=== PATIENT | female | born 1975 | race Caucasian/White ===

== ENCOUNTER 2016-10-03 14:45 | Emergency (ER) | payer MEDICARE, OTHER ==
[~2016-10-03] VITALS: Ht 162.6 cm; Wt 124.7 kg
--- NOTE | 2016-10-03 15:12 | PHYS DOC ---
Past Medical History Past Medical History: No Pertinent History Past Surgical History: , Tubal ligation Alcohol Use: None Drug Use: None Adult General Chief Complaint Chief Complaint: ABDOMINAL PAIN HPI HPI Patient is a 41 year old female who presents with nausea vomiting diarrhea for the last 10 days. She states anytime she tries to eat or drink anything she becomes nauseated and vomits or has nonbloody liquid stools. She also complains about epigastric crampy pain. She denies any blood in her stools. She denies any fevers or chills. She was seen by her primary care physician and started on ranitidine and it seems like some stool cultures were ordered at that time. She denies any surgery on her abdomen. She denies any history of recent travel area. Review of Systems Review of Systems Constitutional: Denies fever or chills [] Eyes: Denies change in visual acuity, redness, or eye pain [] HENT: Denies nasal congestion or sore throat [] Respiratory: Denies cough or shortness of breath [] Cardiovascular: No additional information not addressed in HPI [] GI: Denies abdominal pain, nausea, vomiting, bloody stools or diarrhea [] : Denies dysuria or hematuria [] Musculoskeletal: Denies back pain or joint pain [] Integument: Denies rash or skin lesions [] Neurologic: Denies headache, focal weakness or sensory changes [] Endocrine: Denies polyuria or polydipsia [] Current Medications Current Medications Current Medications Medications (Trade) Dose Ordered Sig/Sree Start Time Stop Time Status Last Admin Dose Admin Info (Do NOT chart on this entry -- for MONITORING) 1 each PRN DAILY PRN 10/03/16 16:30 10/05/16 16:29 Iohexol (Omnipaque 300 Mg/ml) 75 ml 1X ONCE 10/03/16 16:30 10/03/16 16:31 DC 10/03/16 17:03 75 ML Sodium Chloride 1,000 ml @ 1,000 mls/hr Q1H 10/03/16 15:30 10/03/16 16:29 DC 10/03/16 15:51 1,000 MLS/HR Allergies Allergies Allergies Coded Allergies Type Severity Reaction Last Updated Verified ibuprofen Allergy Intermediate hives 04/04/13 Yes Physical Exam Physical Exam Constitutional: Well developed, well nourished, no acute distress, non-toxic appearance. [] HENT: Normocephalic, atraumatic, bilateral external ears normal, oropharynx moist, no oral exudates, nose normal. [] Eyes: PERRLA, EOMI, conjunctiva normal, no discharge. [] Neck: Normal range of motion, no tenderness, supple, no stridor. [] Cardiovascular:Heart rate regular rhythm, no murmur [] Lungs & Thorax: Bilateral breath sounds clear to auscultation [] Abdomen: Bowel sounds hypoactive, soft, mild tender palpation epigastric area without any rebound or guarding., no masses, no pulsatile masses. [] Skin: Warm, dry, no erythema, no rash. [] Back: No tenderness, no CVA tenderness. [] Extremities: No tenderness, no cyanosis, no clubbing, ROM intact, no edema. [] Neurologic: Alert and oriented X 3, normal motor function, normal sensory function, no focal deficits noted. [] Psychologic: Affect normal, judgement normal, mood normal. [] Current Patient Data Vital Signs Vital Signs Date Time Temp Pulse Resp B/P (MAP) Pulse Ox O2 Delivery O2 Flow Rate FiO2 10/03/16 15:10 97.5 100 16 137/84 (101) 98 Room Air 97.5 Lab Values Laboratory Tests Test 10/03/16 15:00 10/03/16 15:25 Urine Collection Type Unknown Urine Color Yellow Urine Clarity Clear Urine pH 5.5 Urine Specific [place] 1.020 Urine Protein Negative mg/dL (NEG-TRACE) Urine Glucose (UA) Negative mg/dL (NEG) Urine Ketones (Stick) Negative mg/dL (NEG) Urine Blood Trace (NEG) Urine Nitrite Negative (NEG) Urine Bilirubin Negative (NEG) Urine Urobilinogen Dipstick 0.2 mg/dL (0.2 mg/dL) Urine Leukocyte Esterase Moderate (NEG) Urine RBC Occ /HPF (0-2) Urine WBC 11-20 /HPF (0-4) Urine Squamous Epithelial Cells Mod /LPF Urine Bacteria Moderate /HPF (0-FEW) Urine Mucus Mod /LPF Urine Opiates Screen Neg (NEG) Urine Methadone Screen Neg (NEG) Urine Barbiturates Neg (NEG) Urine Phencyclidine Screen Neg (NEG) Urine Amphetamine/Methamphetamine Neg (NEG) Urine Benzodiazepines Screen Neg (NEG) Urine Cocaine Screen Neg (NEG) Urine Cannabinoids Screen Neg (NEG) Urine Ethyl Alcohol Neg (NEG) White Blood Count 10.3 x10^3/uL (4.0-11.0) Red Blood Count 4.58 x10^6/uL (3.50-5.40) Hemoglobin 14.2 g/dL (12.0-15.5) Hematocrit 41.6 % (36.0-47.0) Mean Corpuscular Volume 91 fL (79-100) Mean Corpuscular Hemoglobin 31 pg (25-35) Mean Corpuscular Hemoglobin Concent 34 g/dL (31-37) Red Cell Distribution Width 13.1 % (11.5-14.5) Platelet Count 199 x10^3/uL (140-400) Neutrophils (%) (Auto) 67 % (31-73) Lymphocytes (%) (Auto) 26 % (24-48) Monocytes (%) (Auto) 5 % (0-9) Eosinophils (%) (Auto) 1 % (0-3) Basophils (%) (Auto) 1 % (0-3) Neutrophils # (Auto) 6.9 x10^3uL (1.8-7.7) Lymphocytes # (Auto) 2.7 x10^3/uL (1.0-4.8) Monocytes # (Auto) 0.5 x10^3/uL (0.0-1.1) Eosinophils # (Auto) 0.1 x10^3/uL (0.0-0.7) Basophils # (Auto) 0.1 x10^3/uL (0.0-0.2) Prothrombin Time 13.1 SEC (11.7-14.0) Prothrombin Time INR 1.1 (0.8-1.1) PTT 26 SEC (24-38) Sodium Level 143 mmol/L (136-145) Potassium Level 3.6 mmol/L (3.5-5.1) Chloride Level 104 mmol/L (98-107) Carbon Dioxide Level 31 mmol/L (21-32) Anion Gap 8 (6-14) Blood Urea Nitrogen 7 mg/dL (7-20) Creatinine 1.0 mg/dL (0.6-1.0) Estimated GFR (Cockcroft-Gault) 61.4 Glucose Level 74 mg/dL (70-99) Calcium Level 9.0 mg/dL (8.5-10.1) Total Bilirubin 0.3 mg/dL (0.2-1.0) Direct Bilirubin < 0.1 mg/dL (0.0-0.2) Aspartate Amino Transferase (AST) 12 U/L (15-37) L Alanine Aminotransferase (ALT) 26 U/L (14-59) Alkaline Phosphatase 83 U/L (46-116) Creatine Kinase 76 U/L (26-192) Creatine Kinase MB (Mass) < 0.5 ng/mL (0.0-3.6) Creatine Kinase MB Relative Index 0.7 % (0-4) Troponin I Quantitative < 0.017 ng/mL (0.000-0.055) Total Protein 7.3 g/dL (6.4-8.2) Albumin 3.7 g/dL (3.4-5.0) Lipase 158 U/L (73-393) Laboratory Tests 10/03/16 15:25 Laboratory Tests 10/03/16 15:25 EKG EKG [] Radiology/Procedures Radiology/Procedures [facility] [address] [place] [address] IMAGING REPORT Signed PATIENT: TRAV WARD ACCOUNT: [id number] : 1975 LOCATION: ER AGE: 41 SEX: F EXAM STATUS: REG ER ORD. PHYSICIAN: HAZEL MCNULTY MD REASON: abd pain PROCEDURE: CT ABD PELV W/ IV CONTRST ONLY CT Abdomen and Pelvis With Intravenous Contrast: History: Abdominal pain. Nausea, vomiting, diarrhea for 10 days. Comparison: None. Technique: After administration of intravenous contrast administration, 75 mL Omnipaque-300, CT of the abdomen and pelvis was performed. Exposure: One or more of the following individualized dose reduction techniques were utilized for this examination: 1. Automated exposure control 2. Adjustment of the mA and/or kV according to patient size 3. Use of iterative reconstruction technique Findings: Evaluation of enteric structures may be limited by lack of oral contrast. There is also motion artifact at multiple levels. Liver, spleen, pancreas, gallbladder, and bilateral adrenal glands are unremarkable. Bilateral kidneys enhance symmetrically. No bowel obstruction or inflammation is identified. Appendix is without evidence of inflammation. Urinary bladder is unremarkable. Uterus and adnexa unremarkable CT appearance. No free air or significant free fluid is seen in the abdomen or pelvis. Impression: 1. Limited examination. 2. No acute abnormality identified in the abdomen or pelvis. Electronically signed by: Ha Umana MD (10/03/2016 5:43 PM) [facility] DICTATED and SIGNED BY: HA UMANA MD DATE: 10/03/16 1740 CC: HAZEL MCNULTY MD; ANITA DENISE ~ Impressions: Diarrhea Course & Med Decision Making Course & Med Decision Making Pertinent Labs and Imaging studies reviewed. (See chart for details) Labs and CT scan abdomen pelvis did not show any acute abnormalities. She's been here for approximately 3 hours and has not had a bowel movement. She states he feels better now with IV fluids. Patient has a follow-up on Wednesday with an EGD. She has stool samples pending at her primary care physician facility. She is in stable condition this time and being discharged home. Return precautions given. Dragon Disclaimer Dragon Disclaimer This electronic medical record was generated, in whole or in part, using a voice recognition dictation system. Departure Departure Impression: Primary Impression: Diarrhea Disposition: HOME, SELF-CARE Condition: STABLE Referrals: WILMAN LIEBERMAN (PCP) Patient Instructions: Diarrhea Additional Instructions: Your labs and CT scan of her abdomen pelvis did not show any acute abnormality' s. Your being discharged home. Please follow-up with her primary care physician on Wednesday. Return ER if you have blood in your stools, and uncontrolled nausea vomiting, extreme weakness or other concerns. Scripts No Active Prescriptions or Reported Meds Problem Qualifiers Primary Impression: Diarrhea Diarrhea type: unspecified type Qualified Codes: R19.7 - Diarrhea, unspecified HAZEL MCNULTY MD Oct 03, 2016 15:12
[2016-10-03] MEDS ORDERED: IV NORMAL SALINE 1000ML BAG 1,000 ML IV SCH (15:30)
[2016-10-03 15:35] LABS: BASO # 0.1 x10^3/uL (0.0-0.2); BASO % 1 % (0-3); EOS % 1 % (0-3); HEMATOCRIT 41.6 % (36.0-47.0); HEMOGLOBIN 14.2 g/dL (12.0-15.5); LYMPH # 2.7 x10^3/uL (1.0-4.8); LYMPH % 26 % (24-48); MEAN CORPUSCULAR HEMOGLOBIN 31 pg (25-35); MEAN CORPUSCULAR HGB CONC 34 g/dL (31-37); MEAN CORPUSCULAR VOLUME 91 fL (79-100); MONO % 5 % (0-9); NEUT % 67 % (31-73); PLATELET COUNT 199 x10^3/uL (140-400); RED BLOOD COUNT 4.58 x10^6/uL (3.50-5.40); RED CELL DISTRIBUTION WIDTH 13.1 % (11.5-14.5); WHITE BLOOD COUNT 10.3 x10^3/uL (4.0-11.0)
[2016-10-03 15:37] LABS: BILIRUBIN,URINE NEGATIVE (NEG); GLUCOSE,URINE NEGATIVE (NEG); NITRITE,URINE NEGATIVE (NEG); PH,URINE 5.5; PROTEIN,URINE NEGATIVE (NEG-TRACE); UROBILINOGEN,URINE 0.2 mg/dL (0.2 mg/dL)
[2016-10-03 15:46] LABS: BARBITURATES NEG (NEG); BENZODIAZEPINES NEG (NEG); CANNABINOIDS NEG (NEG); COCAINE NEG (NEG); METHADONE NEG (NEG); OPIATES NEG (NEG); PHENCYCLIDINE NEG (NEG)
[2016-10-03 15:49] LABS: BACTERIA,URINE MODERATE /HPF (0-FEW); RBC,URINE OCC /HPF (0-2); SQUAMOUS EPITHELIAL CELL,UR MOD /LPF
[2016-10-03 15:49] LABS: INR 1.1 (0.8-1.1); PROTHROMBIN TIME PATIENT 13.1 SEC (11.7-14.0)
[2016-10-03 15:54] LABS: ANION GAP 8 (6-14); BLOOD UREA NITROGEN 7 mg/dL (7-20); CARBON DIOXIDE 31 mmol/L (21-32); CHLORIDE 104 mmol/L (98-107); GFR 61.4; GLUCOSE 74 mg/dL (70-99); POTASSIUM 3.6 mmol/L (3.5-5.1); SODIUM 143 mmol/L (136-145)
[2016-10-03 16:00] LABS: ALBUMIN 3.7 g/dL (3.4-5.0); ALK PHOS 83 U/L (46-116); ALT (SGPT) 26 U/L (14-59); AST (SGOT) 12 U/L (15-37); DIRECT BILIRUBIN < 0.1 mg/dL (0.0-0.2); TOTAL BILIRUBIN 0.3 mg/dL (0.2-1.0); TOTAL PROTEIN 7.3 g/dL (6.4-8.2)
[2016-10-03 16:08] LABS: CREATINE KINASE 76 U/L (26-192)
[2016-10-03 16:09] LABS: CKMB MASS < 0.5 ng/mL (0.0-3.6)
[2016-10-03] MEDS ORDERED: IOHEXOL 300 MG/ML 75 ML VIAL IV ONE (16:30)
[2016-10-03] MEDS ORDERED: CONTRAST GIVEN MC PRN (16:30)
--- NOTE | 2016-10-03 16:30 | EKG ---
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
--- NOTE | 2016-10-03 17:46 | RAD ---
CT Abdomen and Pelvis With Intravenous Contrast: History: Abdominal pain. Nausea, vomiting, diarrhea for 10 days. Comparison: None. Technique: After administration of intravenous contrast administration, 75 mL Omnipaque-300, CT of the abdomen and pelvis was performed. Exposure: One or more of the following individualized dose reduction techniques were utilized for this examination: 1. Automated exposure control 2. Adjustment of the mA and/or kV according to patient size 3. Use of iterative reconstruction technique Findings: Evaluation of enteric structures may be limited by lack of oral contrast. There is also motion artifact at multiple levels. Liver, spleen, pancreas, gallbladder, and bilateral adrenal glands are unremarkable. Bilateral kidneys enhance symmetrically. No bowel obstruction or inflammation is identified. Appendix is without evidence of inflammation. Urinary bladder is unremarkable. Uterus and adnexa unremarkable CT appearance. No free air or significant free fluid is seen in the abdomen or pelvis. Impression: 1. Limited examination. 2. No acute abnormality identified in the abdomen or pelvis. Electronically signed by: Ha Cantu MD (10/03/2016 5:43 PM) [facility]
[2016-10-03 18:00] VITALS: BP 124/76
== END 2016-10-03 18:00 | disposition home or self-care (01) ==
LOC: ER 14:45
DX: R11.2 Nausea with vomiting, unspecified (principal); R19.7 Diarrhea, unspecified; Z98.51 Tubal ligation status; Z98.890 Other specified postprocedural states; Z88.8 Allergy status to other drugs, medicaments and biological substances
CPT/HCPCS: 36415; 74177; 80048; 80076; 80307; 81001; 82553; 83690; 84484; 85025; 85610; 85730; 87086; 93005; 96360; 99285; J7030; Q9967; G0479

== ENCOUNTER → 2016-10-05 | Outpatient (CLI) | payer MEDICARE ==
[2016-10-03 18:00] VITALS: BP 124/76
--- NOTE | 2016-10-05 13:49 | RAD ---
Abdominal ultrasound, 10/05/2016: History: Midepigastric pain The gallbladder is within normal limits in size. There is no sonographic evidence of cholelithiasis. The gallbladder davalos are not thickened. The common hepatic duct is of normal caliber. The hepatic echogenicity is mildly increased in a diffuse pattern. This most commonly due to fatty change. No hepatic mass is evident. The visualized portions of the pancreas and both kidneys are unremarkable. The spleen is near the upper limits of normal in size. The abdominal aorta and inferior vena cava are unremarkable. No free fluid is evident in the abdomen. IMPRESSION: 1. Increased hepatic echogenicity suggesting fatty change. 2. No acute abdominal abnormality is detected.
== END | disposition home or self-care (01) ==
LOC: US 10:44
PROVIDERS: ATTEND Physician Assistant
DX: R10.13 Epigastric pain (principal)
CPT/HCPCS: 76700

== ENCOUNTER 2016-10-07 10:52 | Emergency (ER) | payer MEDICARE ==
[~2016-10-07] VITALS: Ht 162.6 cm; Wt 124.7 kg
[2016-10-07 11:16] LABS: BILIRUBIN,URINE NEGATIVE (NEG); GLUCOSE,URINE NEGATIVE (NEG); NITRITE,URINE NEGATIVE (NEG); PH,URINE 5.5; PROTEIN,URINE NEGATIVE (NEG-TRACE); UROBILINOGEN,URINE 0.2 mg/dL (0.2 mg/dL)
[2016-10-07 11:27] LABS: BASO % 0 % (0-3); EOS % 2 % (0-3); HEMATOCRIT 40.7 % (36.0-47.0); HEMOGLOBIN 14.3 g/dL (12.0-15.5); LYMPH # 2.4 x10^3/uL (1.0-4.8); LYMPH % 29 % (24-48); MEAN CORPUSCULAR HEMOGLOBIN 31 pg (25-35); MEAN CORPUSCULAR HGB CONC 35 g/dL (31-37); MEAN CORPUSCULAR VOLUME 89 fL (79-100); MONO % 5 % (0-9); NEUT % 64 % (31-73); PLATELET COUNT 207 x10^3/uL (140-400); RED BLOOD COUNT 4.56 x10^6/uL (3.50-5.40); WHITE BLOOD COUNT 8.2 x10^3/uL (4.0-11.0)
[2016-10-07 11:39] LABS: CALCIUM 9.2 mg/dL (8.5-10.1); GFR 61.4; POTASSIUM 3.7 mmol/L (3.5-5.1)
[2016-10-07 11:43] LABS: BACTERIA,URINE MOD /HPF (0-FEW); SQUAMOUS EPITHELIAL CELL,UR MOD /LPF
[2016-10-07 11:45] LABS: ALBUMIN 3.8 g/dL (3.4-5.0); TOTAL BILIRUBIN 0.3 mg/dL (0.2-1.0); TOTAL PROTEIN 7.6 g/dL (6.4-8.2)
[2016-10-07] MEDS: LIDO:MAALOX:DONNATAL 1:1:1 15 ML SINGLE DOSE SWSW ONE (12:00)
[2016-10-07] MEDS: DICYCLOMINE 20 MG/2 ML AMPUL. IM ONE (12:02)
[2016-10-07] MEDS ORDERED: DICY10CA53 PO (12:49)
--- NOTE | 2016-10-07 12:49 | PHYS DOC ---
Past Medical History Past Medical History: No Pertinent History Past Surgical History: , Tubal ligation Alcohol Use: Rarely Drug Use: None Adult General Chief Complaint Chief Complaint: ABDOMINAL PAIN HPI HPI Patient is a 41 year old female presents to the emergency department stating that she's been having diarrhea stools for over 10 days. She states that she's been seen by her primary care physician. She was seen here on 03 October for upper abdominal pain and diarrhea. She had a CT scan of the abdomen CBC chemistries and a complete workup done at that time. She states that she is still having left upper abdominal pain and diarrhea. She states she's had 2 diarrhea stools today. She states that she has not seen but has not vomited. She does state that her primary care physician who placed her on 917 which has not helped with any of the discomfort. Patient denies any fever, chills. Review of Systems Review of Systems Constitutional: Denies fever or chills [] Eyes: Denies change in visual acuity, redness, or eye pain [] HENT: Denies nasal congestion or sore throat [] Respiratory: Denies cough or shortness of breath [] Cardiovascular: No additional information not addressed in HPI [] GI: abdominal pain, nausea c/o diarrhea stools, denies vomiting, bloody stools or diarrhea [] : Denies dysuria or hematuria [] Musculoskeletal: Denies back pain or joint pain [] Integument: Denies rash or skin lesions [] Neurologic: Denies headache, focal weakness or sensory changes [] Endocrine: Denies polyuria or polydipsia [] Current Medications Current Medications Current Medications Medications (Trade) Dose Ordered Sig/Sree Start Time Stop Time Status Last Admin Dose Admin Dicyclomine HCl (Bentyl) 10 mg 1X ONCE 10/07/16 11:45 10/07/16 11:46 DC 10/07/16 12:02 10 MG Multi-Ingredient Mouthwash/Gargle (Gi Cocktail Single Dose) 15 ml 1X ONCE 10/07/16 11:45 10/07/16 11:46 DC 10/07/16 12:00 15 ML Allergies Allergies Allergies Coded Allergies Type Severity Reaction Last Updated Verified ibuprofen Allergy Intermediate hives 10/07/16 Yes Physical Exam Physical Exam Constitutional: Well developed, well nourished, no acute distress, non-toxic appearance. [] HENT: Normocephalic, atraumatic, bilateral external ears normal, oropharynx moist, no oral exudates, nose normal. [] Eyes: PERRLA, EOMI, conjunctiva normal, no discharge. [] Neck: Normal range of motion, no tenderness, supple, no stridor. [] Cardiovascular:Heart rate regular rhythm, no murmur [] Lungs & Thorax: Bilateral breath sounds clear to auscultation [] Abdomen: Bowel sounds hypoactive, soft, left upper abdominal tenderness, no masses, no pulsatile masses. [] Skin: Warm, dry, no erythema, no rash. [] Back: No tenderness Extremities: No tenderness, no cyanosis, no clubbing, ROM intact, no edema. [] Neurologic: Alert and oriented X 3, normal motor function, normal sensory function, no focal deficits noted. [] Psychologic: Affect normal, judgement normal, mood normal. [] Current Patient Data Vital Signs Vital Signs Date Time Temp Pulse Resp B/P (MAP) Pulse Ox O2 Delivery O2 Flow Rate FiO2 10/07/16 11:05 98.2 85 20 139/86 (103) 99 Room Air 98.2 Lab Values Laboratory Tests Test 10/07/16 10:11 10/07/16 10:59 10/07/16 11:10 POC Urine HCG, Qualitative Hcg negative (Negative) Urine Collection Type Void Urine Color Yellow Urine Clarity Clear Urine pH 5.5 Urine Specific [place] 1.025 Urine Protein Negative mg/dL (NEG-TRACE) Urine Glucose (UA) Negative mg/dL (NEG) Urine Ketones (Stick) Negative mg/dL (NEG) Urine Blood Trace (NEG) Urine Nitrite Negative (NEG) Urine Bilirubin Negative (NEG) Urine Urobilinogen Dipstick 0.2 mg/dL (0.2 mg/dL) Urine Leukocyte Esterase Moderate (NEG) Urine RBC 1-2 /HPF (0-2) Urine WBC 5-10 /HPF (0-4) Urine Squamous Epithelial Cells Mod /LPF Urine Bacteria Mod /HPF (0-FEW) Urine Mucus Slight /LPF White Blood Count 8.2 x10^3/uL (4.0-11.0) Red Blood Count 4.56 x10^6/uL (3.50-5.40) Hemoglobin 14.3 g/dL (12.0-15.5) Hematocrit 40.7 % (36.0-47.0) Mean Corpuscular Volume 89 fL (79-100) Mean Corpuscular Hemoglobin 31 pg (25-35) Mean Corpuscular Hemoglobin Concent 35 g/dL (31-37) Red Cell Distribution Width 13.0 % (11.5-14.5) Platelet Count 207 x10^3/uL (140-400) Neutrophils (%) (Auto) 64 % (31-73) Lymphocytes (%) (Auto) 29 % (24-48) Monocytes (%) (Auto) 5 % (0-9) Eosinophils (%) (Auto) 2 % (0-3) Basophils (%) (Auto) 0 % (0-3) Neutrophils # (Auto) 5.3 x10^3uL (1.8-7.7) Lymphocytes # (Auto) 2.4 x10^3/uL (1.0-4.8) Monocytes # (Auto) 0.4 x10^3/uL (0.0-1.1) Eosinophils # (Auto) 0.2 x10^3/uL (0.0-0.7) Basophils # (Auto) 0.0 x10^3/uL (0.0-0.2) Sodium Level 140 mmol/L (136-145) Potassium Level 3.7 mmol/L (3.5-5.1) Chloride Level 104 mmol/L (98-107) Carbon Dioxide Level 32 mmol/L (21-32) Anion Gap 4 (6-14) L Blood Urea Nitrogen 10 mg/dL (7-20) Creatinine 1.0 mg/dL (0.6-1.0) Estimated GFR (Cockcroft-Gault) 61.4 BUN/Creatinine Ratio 10 (6-20) Glucose Level 85 mg/dL (70-99) Calcium Level 9.2 mg/dL (8.5-10.1) Total Bilirubin 0.3 mg/dL (0.2-1.0) Aspartate Amino Transferase (AST) 19 U/L (15-37) Alanine Aminotransferase (ALT) 33 U/L (14-59) Alkaline Phosphatase 85 U/L (46-116) Total Protein 7.6 g/dL (6.4-8.2) Albumin 3.8 g/dL (3.4-5.0) Albumin/Globulin Ratio 1.0 (1.0-1.7) Laboratory Tests 10/07/16 11:10 Laboratory Tests 10/07/16 11:10 EKG EKG [] Radiology/Procedures Radiology/Procedures [] Course & Med Decision Making Course & Med Decision Making Pertinent Labs and Imaging studies reviewed. (See chart for details) Patient was provided with Bentyl here in the emergency department as well as a GI cocktail. Patient states that she feels much better and is ready to go home. Recommended the patient follow-up with a GI doctor she states that her primary care physician in the setting up an appointment up for her. I spoke to her about taking initiative on her own to also get a GI doctor since she's had diarrhea stools for the last 10 days. Patient will be sent home with a prescription for Bentyl recommended Mylanta or Maalox [id number] as well as her amantadine. Patient will be discharged home in stable condition signs symptoms to return back to emergency department been provided. All questions and concerns of been answered at the bedside. Patient has requested a work note for today. Patient's urine was positive for urinary tract infection. She'll be placed on Macrobid one tablet twice a for the next 7 days. She is recommended drink plenty of fluids such as water and cranberry juice. Avoid cranberry juice cocktail, carbonated beverages, citrus fruits, alcohol, caffeine as these are considered irritants to the bladder. [] Dragon Disclaimer Dragon Disclaimer This electronic medical record was generated, in whole or in part, using a voice recognition dictation system. Departure Departure Impression: Primary Impression: Abdominal pain Additional Impressions: Diarrhea UTI (urinary tract infection) Referrals: ANITA DENISE (PCP) JOSE G HENRY MD Patient Instructions: Abdominal Pain (Nonspecific), Diarrhea, [id number], Diet for Diarrhea, Adult, Urinary Tract Infection, [id number] Additional Instructions: Activity as tolerated. Medication as prescribed. Drink plenty of fluids such as water and cranberry juice. Avoid cranberry juice cocktail, carbonated beverages, citrus fruits, alcohol, caffeine, as these are all considered irritants to the bladder. Clear liquid diet for the next 24 hours to help with the diarrhea stools. Recommended following up with a GI doctor in which we have provided G Wood name of one. Return back to emergency prior signs symptoms of become worse. Scripts Nitrofurantoin Monohyd/M-Cryst (MACROBID 100 MG CAPSULE) 100 Mg Capsule 1 CAP PO BID, #14 CAP Prov: JACQUELIN AMOS APRN 10/07/16 Dicyclomine Hcl (BENTYL) 10 Mg Capsule 1 CAP PO TID, #90 CAP Prov: JACQULEIN AMOS APRN 10/07/16 Problem Qualifiers Primary Impression: Abdominal pain Abdominal location: left upper quadrant Qualified Codes: R10.12 - Left upper quadrant pain Additional Impressions: Diarrhea Diarrhea type: unspecified type Qualified Codes: R19.7 - Diarrhea, unspecified UTI (urinary tract infection) Urinary tract infection type: site unspecified Hematuria presence: without hematuria Qualified Codes: N39.0 - Urinary tract infection, site not specified JACQUELIN AMOS APRN Oct 07, 2016 12:49
[2016-10-07] MEDS ORDERED: NITR100C62 PO (12:54)
[2016-10-07 13:00] VITALS: BP 122/77
== END 2016-10-07 13:10 | disposition home or self-care (01) ==
LOC: ER 10:52
DX: N39.0 Urinary tract infection, site not specified (principal); R19.7 Diarrhea, unspecified; Z88.6 Allergy status to analgesic agent
CPT/HCPCS: 36415; 80053; 81001; 81025; 85025; 96372; 99284; J0500

== ENCOUNTER → 2016-10-22 | Day surgery (SDC) | payer MEDICARE ==
[~2016-10-22] MED LIST: DICY10CA53 PO; HYDROmorphone 2 MG/ML VIAL IV PRN; IV RINGERS,LACTATED 1000ML 1,000 ML IV SCH; LIDOCAINE 1% 1 ML SYRINGE. ID PRN; MORPHINE SULFATE 2 MG/ML DISP.SYRIN. IV PRN; NITR100C62 PO; ONDANSETRON PF 4 MG/2 ML VIAL. IV PRN; PROCHLORPERAZINE 10 MG/2 ML VIAL. IV PRN; PROPOFOL 20 ML IV ONE; PROPOFOL 40 ML IV ONE; fentaNYL PF VIAL 100 MCG/2 ML VIAL IV PRN
[2016-10-22 13:43] VITALS: BP 126/69
--- NOTE | 2016-10-24 00:02 | PATHOLOGY ---
PATHOLOGY REPORT * * * * * * * * FINAL DIAGNOSIS: A. Small bowel, duodenum, biopsy: - Mild chronic inflammation. - Normal villous architecture. B. Colon, random biopsies: - Colonic mucosa with mild acute and chronic inflammation and focal minimal acute cryptitis (please see comment). COMMENT: B. The findings in the random colon biopsies (B) could be consistent with an acute self-limited colitis. No specific evidence of chronic inflammatory bowel disease is seen. (SKM:nadege; 10/23/2016) REPORT ELECTRONICALLY SIGNED BY: Harrison Manzano M.D. DATE/TIME: 10/23/2016 10:54 * * * * * * * * GROSS PATHOLOGY: A. Received in formalin labeled "Mackenzie Colon, duodenal biopsy," are multiple segments of steen soft tissue measuring from 0.1 up to 0.4 cm in maximum dimension. The specimen is submitted entirely in cassette A1. B. Received in formalin labeled "random colon biopsy," are multiple segments of steen soft tissue measuring from 0.1 up to 0.3 cm in maximum dimension. The specimen is submitted entirely in cassette B1. ([facility]; 10/22/16) INITIAL CPT CODE(S): A; 36031 B; 05170 Professional services performed by [facility] [place] [address] Technical services performed by [facility] at [address] [place] [address], [facility] [address], [place] [address]. SPECIMEN(S) RECEIVED: A.Duodenal biopsy B.Random colon biopsy CLINICAL HISTORY: Diarrhea, abdominal pain, nausea, RUQ pain, family history of colon cancer PATIENT: MACKENZIE COLON /AGE: 4 1975 (Age: 41) PATIENT #: [id number] CASE #: SPECIMEN COLLECTION DATE: 10/22/2016 SPECIMEN RECEIVED DATE: 10/22/2016 [facility] - [address] [place] [address] - PHONE: [phone] * * * END OF REPORT * * *
== END | disposition home or self-care (01) ==
LOC: ENDOS 10:36
PROVIDERS: ATTEND Internal Medicine Gastroenterology
DX: K64.0 First degree hemorrhoids (principal); K31.89 Other diseases of stomach and duodenum; E66.9 Obesity, unspecified; Z68.41 Body mass index [BMI] 40.0-44.9, adult; Z87.440 Personal history of urinary (tract) infections; Z88.6 Allergy status to analgesic agent
CPT/HCPCS: 43239; 45380; J2704; 88305

== ENCOUNTER → 2016-10-29 | Outpatient (CLI) | payer MEDICARE ==
[2016-10-22 13:43] VITALS: BP 126/69
[~2016-10-29] MED LIST changes: +BARIUM SULFATE 340 GM SUSPENSION. PO ONE; +BARIUM SULFATE 60% 355 ML SUSP PO ONE; -HYDROmorphone 2 MG/ML VIAL IV PRN; -IV RINGERS,LACTATED 1000ML 1,000 ML IV SCH; -LIDOCAINE 1% 1 ML SYRINGE. ID PRN; -MORPHINE SULFATE 2 MG/ML DISP.SYRIN. IV PRN; -ONDANSETRON PF 4 MG/2 ML VIAL. IV PRN; -PROCHLORPERAZINE 10 MG/2 ML VIAL. IV PRN; -PROPOFOL 20 ML IV ONE; -PROPOFOL 40 ML IV ONE; +SIMETHICONE/SOD BICARB/CITRIC ACID PACKET. PO ONE; -fentaNYL PF VIAL 100 MCG/2 ML VIAL IV PRN
--- NOTE | 2016-10-29 10:20 | RAD ---
Indication abdominal pain. In anticipation of an upper GI and small bowel follow-through preliminary films of the abdomen were obtained which appeared normal. Upper GI and small bowel follow-through was performed. The upper GI was performed in double contrast fashion. 17 fluoroscopic images were obtained. Fluoroscopy time associated with the examination was 2.5 minutes. Initiation of swallowing was normal. The esophagus appeared normal. No hiatus hernia was seen. The stomach appeared normal. The duodenal bulb appeared normal. Duodenal diverticulum was noted. Barium was followed through the small bowel to the large bowel. Jejunal and ileal loops appeared normal. No mass or constricting lesion was seen. The terminal ileum appeared unremarkable. IMPRESSION: Normal upper GI and small bowel follow-through
== END | disposition home or self-care (01) ==
LOC: RAD 08:12
PROVIDERS: ATTEND Internal Medicine Gastroenterology
DX: K57.10 Diverticulosis of small intestine without perforation or abscess without bleeding (principal)
CPT/HCPCS: 74245

== ENCOUNTER → 2016-11-09 | Outpatient (CLI) | payer MEDICARE ==
[2016-10-22 13:43] VITALS: BP 126/69
[~2016-11-09] VITALS: Ht 157.5 cm; Wt 124.7 kg
[~2016-11-09] MED LIST changes: -BARIUM SULFATE 340 GM SUSPENSION. PO ONE; -BARIUM SULFATE 60% 355 ML SUSP PO ONE; +NORMAL SALINE IV ONE; +ONDA4TAB10 SL; -SIMETHICONE/SOD BICARB/CITRIC ACID PACKET. PO ONE; +SINCALIDE IV ONE
--- NOTE | 2016-11-09 13:30 | RAD ---
Exam performed: Nuclear medicine hepatobiliary scan. History: Nausea, vomiting, abdominal pain for 4 months Findings: Following intravenous administration of5.5 mCi of Choletec tagged with Tc, sequential gamma camera images of the right upper quadrant of the abdomen were obtained. There is prompt accumulation of radionuclide in the liver which appears to be unremarkable Prompt accumulation in the central intrahepatic biliary radicals, gallbladder, common bile duct and small bowel is noted. Patient was also infused with 2.4mcg of CCK and gallbladder ejection fraction was calculated which measures 91 percent. Impression: Normal nuclear hepatobiliary scan with gallbladder ejection fraction [id number]
== END | disposition home or self-care (01) ==
LOC: NM 08:00
PROVIDERS: ATTEND Internal Medicine Gastroenterology
DX: R10.9 Unspecified abdominal pain (principal); R11.2 Nausea with vomiting, unspecified; R19.7 Diarrhea, unspecified
CPT/HCPCS: 78226; 96374; 96375; A9537; J2805

== ENCOUNTER 2016-11-11 09:52 | Emergency (ER) | payer MEDICARE ==
[~2016-11-11] VITALS: Ht 157.5 cm; Wt 112.0 kg
[~2016-11-11 09:52] MED LIST changes: -NORMAL SALINE IV ONE; -ONDA4TAB10 SL; -SINCALIDE IV ONE
--- NOTE | 2016-11-11 10:20 | PHYS DOC ---
Past Medical History Past Medical History: No Pertinent History Past Surgical History: , Tubal ligation Alcohol Use: Rarely Drug Use: None Adult General Chief Complaint Chief Complaint: ABDOMINAL PAIN HPI HPI Patient is a 41 year old female presents to the ED complaining of abdominal pain 1 month. Patient states the abdominal pain has worsened over the last day. Describes as uncomfortable, rates as 5 out of 10. States she had some imaging and lab work done at her GI doctors office on Wednesday, Dr. Witt. Associated symptoms include diarrhea. Denies bloody stools, chest pain, shortness of breath, dizziness, weakness, syncope, vomiting. Review of Systems Review of Systems Constitutional: Denies fever or chills [] Eyes: Denies change in visual acuity, redness, or eye pain [] HENT: Denies nasal congestion or sore throat [] Respiratory: Denies cough or shortness of breath [] Cardiovascular: No additional information not addressed in HPI [] GI: Complains of abdominal pain. Denies nausea, vomiting, bloody stools or diarrhea [] : Denies dysuria or hematuria [] Musculoskeletal: Denies back pain or joint pain [] Integument: Denies rash or skin lesions [] Neurologic: Denies headache, focal weakness or sensory changes [] Endocrine: Denies polyuria or polydipsia [] Current Medications Current Medications Current Medications Medications (Trade) Dose Ordered Sig/Sree Start Time Stop Time Status Last Admin Dose Admin Morphine Sulfate 4 mg 1X ONCE 11/11/16 10:30 11/11/16 10:31 DC 11/11/16 10:32 4 MG Ondansetron HCl (Zofran) 4 mg 1X ONCE 11/11/16 10:30 11/11/16 10:31 DC 11/11/16 10:32 4 MG Allergies Allergies Allergies Coded Allergies Type Severity Reaction Last Updated Verified ibuprofen Allergy Intermediate hives 10/22/16 Yes Physical Exam Physical Exam Constitutional: Well developed, well nourished, no acute distress, non-toxic appearance. [] HENT: Normocephalic, atraumatic, bilateral external ears normal, oropharynx moist, no oral exudates, nose normal. [] Eyes: PERRLA, EOMI, conjunctiva normal, no discharge. [] Neck: Normal range of motion, no tenderness, supple, no stridor. [] Cardiovascular:Heart rate regular rhythm, no murmur [] Lungs & Thorax: Bilateral breath sounds clear to auscultation [] Abdomen: Bowel sounds normal, soft, MILD LEFT UPPER QUADRANT TENDERNESS, no masses, no pulsatile masses. [] Skin: Warm, dry, no erythema, no rash. [] Back: No tenderness, no CVA tenderness. [] Extremities: No tenderness, no cyanosis, no clubbing, ROM intact, no edema. [] Neurologic: Alert and oriented X 3, normal motor function, normal sensory function, no focal deficits noted. [] Psychologic: Affect normal, judgement normal, mood normal. [] Current Patient Data Vital Signs Vital Signs Date Time Temp Pulse Resp B/P (MAP) Pulse Ox O2 Delivery O2 Flow Rate FiO2 11/11/16 11:06 Room Air 11/11/16 11:03 64 15 117/65 (82) 96 11/11/16 09:58 97.8 97.8 Lab Values Laboratory Tests Test 11/11/16 10:16 White Blood Count 9.3 x10^3/uL (4.0-11.0) Red Blood Count 4.53 x10^6/uL (3.50-5.40) Hemoglobin 14.0 g/dL (12.0-15.5) Hematocrit 41.4 % (36.0-47.0) Mean Corpuscular Volume 91 fL (79-100) Mean Corpuscular Hemoglobin 31 pg (25-35) Mean Corpuscular Hemoglobin Concent 34 g/dL (31-37) Red Cell Distribution Width 13.0 % (11.5-14.5) Platelet Count 186 x10^3/uL (140-400) Urine Collection Type Unknown Urine Color Prerna Urine Clarity Cloudy Urine pH 6.0 Urine Specific [place] 1.025 Urine Protein Negative mg/dL (NEG-TRACE) Urine Glucose (UA) Negative mg/dL (NEG) Urine Ketones (Stick) Negative mg/dL (NEG) Urine Blood Negative (NEG) Urine Nitrite Negative (NEG) Urine Bilirubin Negative (NEG) Urine Urobilinogen Dipstick 0.2 mg/dL (0.2 mg/dL) Urine Leukocyte Esterase Trace (NEG) Urine RBC 1-2 /HPF (0-2) Urine WBC 1-4 /HPF (0-4) Urine Squamous Epithelial Cells Mod /LPF Urine Bacteria Mod /HPF (0-FEW) Urine Mucus Mod /LPF Urine Test Negative (NEG) Sodium Level 139 mmol/L (136-145) Potassium Level 4.0 mmol/L (3.5-5.1) Chloride Level 102 mmol/L (98-107) Carbon Dioxide Level 29 mmol/L (21-32) Anion Gap 8 (6-14) Blood Urea Nitrogen 9 mg/dL (7-20) Creatinine 1.2 mg/dL (0.6-1.0) H Estimated GFR (Cockcroft-Gault) 49.8 BUN/Creatinine Ratio 8 (6-20) Glucose Level 88 mg/dL (70-99) Calcium Level 8.8 mg/dL (8.5-10.1) Total Bilirubin 0.5 mg/dL (0.2-1.0) Aspartate Amino Transferase (AST) 28 U/L (15-37) Alanine Aminotransferase (ALT) 56 U/L (14-59) Alkaline Phosphatase 86 U/L (46-116) Total Protein 7.5 g/dL (6.4-8.2) Albumin 4.0 g/dL (3.4-5.0) Albumin/Globulin Ratio 1.1 (1.0-1.7) Lipase 152 U/L (73-393) Laboratory Tests 11/11/16 10:16 Laboratory Tests 11/11/16 10:16 EKG EKG [] Radiology/Procedures Radiology/Procedures [] Course & Med Decision Making Course & Med Decision Making Pertinent Labs and Imaging studies reviewed. (See chart for details) []Discussed case with Dr. Witt's nurse practitioner, Kathy. Results from EGD , colonoscopy and gallbladder evaluation show the patient has gastritis. States that Dr. Witt wants to do a gastric emptying study on her early next week. On reexamination, abdomen is soft nontender nondistended. No peritoneal signs. Tolerating by mouth. She feels comfortable going home. Discussed follow-up outpatient with Dr. Hinkle. Discussed reasons to return to the ED. Patient understands and agrees with plan. Dragon Disclaimer Dragon Disclaimer This electronic medical record was generated, in whole or in part, using a voice recognition dictation system. Departure Departure Impression: Primary Impression: Gastritis Disposition: 01 HOME, SELF-CARE Condition: IMPROVED Referrals: ANITA DENISE (PCP) JOSE G HENRY MD Patient Instructions: Gastritis, Adult Scripts Ondansetron (ZOFRAN ODT) 4 Mg Tab.rapdis 1 TAB SL Q8HRS, #15 TAB Prov: PENNY ZAMORA 11/11/16 PENNY ZAMORA Nov 11, 2016 10:20
[2016-11-11 10:24] LABS: HEMATOCRIT 41.4 % (36.0-47.0); RED BLOOD COUNT 4.53 x10^6/uL (3.50-5.40); WHITE BLOOD COUNT 9.3 x10^3/uL (4.0-11.0)
[2016-11-11] MEDS ORDERED: MORPHINE SULFATE 4 MG/ML DISP.SYRIN. IV ONE (10:30)
[2016-11-11] MEDS ORDERED: ONDANSETRON PF 4 MG/2 ML VIAL. IV ONE (10:30)
[2016-11-11 10:46] LABS: ALBUMIN/GLOBULIN RATIO 1.1 (1.0-1.7); CALCIUM 8.8 mg/dL (8.5-10.1); GFR 49.8; TOTAL BILIRUBIN 0.5 mg/dL (0.2-1.0); TOTAL PROTEIN 7.5 g/dL (6.4-8.2)
[2016-11-11 10:49] LABS: CREATININE 1.2 mg/dL (0.6-1.0)
[2016-11-11 10:51] LABS: BILIRUBIN,URINE NEGATIVE (NEG); GLUCOSE,URINE NEGATIVE (NEG); NITRITE,URINE NEGATIVE (NEG); PROTEIN,URINE NEGATIVE (NEG-TRACE); UROBILINOGEN,URINE 0.2 mg/dL (0.2 mg/dL)
[2016-11-11 10:52] LABS: BACTERIA,URINE MOD /HPF (0-FEW); SQUAMOUS EPITHELIAL CELL,UR MOD /LPF
[2016-11-11 11:03] VITALS: BP 117/65
[2016-11-11 11:03] LABS: NEG OBC UR NEG; POS OBC UR POS
[2016-11-11] MEDS ORDERED: ONDA4TAB10 SL (11:31)
== END 2016-11-11 12:01 | disposition home or self-care (01) ==
LOC: ER 09:52
DX: K29.70 Gastritis, unspecified, without bleeding (principal); Z98.51 Tubal ligation status; Z98.890 Other specified postprocedural states
CPT/HCPCS: 36415; 80053; 81001; 81025; 83690; 85027; 96374; 96375; 99284; J2270; J2405

== ENCOUNTER → 2016-11-18 | Outpatient (CLI) | payer MEDICARE ==
[2016-11-11 11:03] VITALS: BP 117/65
[~2016-11-18] MED LIST changes: +ONDA4TAB10 SL
--- NOTE | 2016-11-18 09:50 | RAD ---
Radionuclide gastric emptying study, 11/18/2016: History: Nausea, vomiting, diarrhea The study was performed utilizing a solid test meal radiolabeled with 2.1 mCi of technetium 99m sulfur colloid. Imaging obtained out to one our showed only minimal extension of activity into the small bowel. The time activity curve is relatively flat. An accurate T1/2 cannot be calculated in this situation. IMPRESSION: Markedly delayed gastric emptying.
== END | disposition home or self-care (01) ==
LOC: NM 07:52
PROVIDERS: ATTEND Internal Medicine Gastroenterology
DX: K30 Functional dyspepsia (principal); Z60.0 Problems of adjustment to life-cycle transitions
CPT/HCPCS: 78264; A9541

== ENCOUNTER → 2017-11-11 | Outpatient (CLI) | payer MEDICARE ==
--- NOTE | 2017-11-12 08:37 | RAD ---
DATE: 11/11/2017 EXAM: MAMMO TYSON SCREENING BILATERAL HISTORY: No current relevant symptoms. Screening evaluation. COMPARISON: None. This exam is the baseline. This study was interpreted with the benefit of Computerized Aided Detection (CAD ). Breast Density: FATTY The breast parenchyma is primarily fatty replaced. Breast parenchyma level density A. FINDINGS: There are no suspicious calcification clusters, masses, or distortion. IMPRESSION: BI-RADS CATEGORY: 1 NEGATIVE RECOMMENDED FOLLOW-UP: PQRS compliance statement: Patient information was entered into a reminder system with a target due date in 1 year for the next mammogram. Mammography is a sensitive method for finding small breast cancers, but it does not detect them all and is not a substitute for careful clinical examination. A negative mammogram does not negate a clinically suspicious finding and should not result in delay in biopsying a clinically suspicious abnormality. "Our facility is accredited by the [employer] Mammography Program." JONATHOND
== END ==
LOC: MAMMO 08:51
PROVIDERS: ATTEND Physician Assistant Medical
DX: Z12.31 Encounter for screening mammogram for malignant neoplasm of breast (principal)
CPT/HCPCS: 77063; 77067

== ENCOUNTER 2018-12-26 17:14 | Emergency (ER) | payer MEDICARE ==
[~2018-12-26] VITALS: Ht 162.6 cm; Wt 122.5 kg
[~2018-12-26 17:14] MED LIST changes: +HYOS0.1265 SL
[2018-12-26 17:52] VITALS: BP 149/70
--- NOTE | 2018-12-26 18:04 | PHYS DOC ---
Past Medical History Past Medical History: No Pertinent History (MAGGIE LENNON APRN) Past Surgical History: , Tubal ligation, Other Additional Past Surgical Histo: NOVASURE (MAGGIE LENNON APRN) Alcohol Use: None Drug Use: None (MAGGIE LENNON APRN) Adult General Chief Complaint Chief Complaint: COUGH HPI HPI Patient is a 43 year old female who presents to ER for cough this been ongoing for 3 weeks. The patient states she has a runny nose as well and that she was seen over the last several days and giving a dose of prednisone, but she is concerned she might have pneumonia she she wants a chest x-ray. She says that she was running a fever over the weekend. She states that she works at her [employer]. (MAGGIE LENNON APRN) Review of Systems Review of Systems Constitutional: Denies fever or chills [] Eyes: Denies change in visual acuity, redness, or eye pain [] HENT: Denies nasal congestion or sore throat [] Respiratory: Reports cough and shortness of breath [] Cardiovascular: No additional information not addressed in HPI [] GI: Denies abdominal pain, nausea, vomiting, bloody stools or diarrhea [] : Denies dysuria or hematuria [] Musculoskeletal: Denies back pain or joint pain [] Integument: Denies rash or skin lesions [] Neurologic: Denies headache, focal weakness or sensory changes [] Endocrine: Denies polyuria or polydipsia [] Complete systems were reviewed and found to be within normal limits, except as documented in this note. (MAGGIE LENNON APRN) Allergies Allergies Allergies Coded Allergies Type Severity Reaction Last Updated Verified ibuprofen Allergy Intermediate hives 10/22/16 Yes (CARLOS CARLOS MD) Physical Exam Physical Exam Constitutional: Well developed, well nourished, no acute distress, non-toxic appearance. [] HENT: Normocephalic, atraumatic, bilateral external ears normal, oropharynx moist, no oral exudates, nose normal. [] Eyes: PERRLA, EOMI, conjunctiva normal, no discharge. [] Neck: Normal range of motion, no tenderness, supple, no stridor. [] Cardiovascular:Heart rate regular rhythm, no murmur [] Lungs & Thorax: Bilateral breath sounds clear to auscultation [] Abdomen: Bowel sounds normal, soft, no tenderness, no masses, no pulsatile masses. [] Skin: Warm, dry, no erythema, no rash. [] Back: No tenderness, no CVA tenderness. [] Extremities: No tenderness, no cyanosis, no clubbing, ROM intact, no edema. [] Neurologic: Alert and oriented X 3, normal motor function, normal sensory function, no focal deficits noted. [] Psychologic: Affect normal, judgement normal, mood normal. [] (MAGGIE LENNON APRN) Current Patient Data Vital Signs Vital Signs Date Time Temp Pulse Resp B/P (MAP) Pulse Ox O2 Delivery O2 Flow Rate FiO2 12/26/18 17:52 97.5 96 16 149/70 (96) 98 Room Air 97.5 (CARLOS CARLOS MD) EKG EKG [] (MAGGIE LENNON APRN) Radiology/Procedures Radiology/Procedures Chest x-ray interpreted by Dr. Carlos Possible small lower lobe right sided pneumonia. [id number] [place] [address] IMAGING REPORT Signed PATIENT: TRAV WARD ACCOUNT: [id number] : 1975 LOCATION: ER AGE: 43 SEX: F EXAM STATUS: REG ER ORD. PHYSICIAN: MAGGIE LENNON APRN REASON: cough, fever PROCEDURE: CHEST PA & LATERAL Study: CHEST PA LATERAL Indication: Cough and fever. Comparison: None available. Findings: On the lateral view, slight haziness projecting over the anterior aspect of the lower thoracic vertebral elements at the level of the retrocardiac clear space. No pleural effusion or pneumothorax. Unremarkable cardiomediastinal silhouette and fabricio. Impression: On the lateral view, faint haziness projecting over the anterior aspect of the lower thoracic vertebral bodies at the level of the retrocardiac clear space. This could represent superimposition of osseous/soft tissue structures however a developing infectious infiltrate could appear similar. No parapneumonic effusion. Electronically signed by: DARIUS GALVAN MD (12/26/2018 6:33 PM) [facility] DICTATED and SIGNED BY: DARIUS GALVAN MD DATE: 12/26/18 183 (MAGGIE LENNON APRN) Course & Med Decision Making Course & Med Decision Making Pertinent Labs and Imaging studies reviewed. (See chart for details) Will get chest x-ray. The patient has had a cough for three weeks and has an area suspicious for pneumonia on chest x-ray will treat with antibiotics. (MAGGIE LENNON APRN) Course & Med Decision Making Staff Physician Addendum: I was working in the ER during the course of this patient's visit. I was available for consultation as needed, but I was not directly involved in the care of this patient. (CARLOS CARLOS MD) Dragon Disclaimer Dragon Disclaimer This electronic medical record was generated, in whole or in part, using a voice recognition dictation system. (MAGGIE LENNON APRN) Departure Departure Impression: Primary Impression: Pneumonia Disposition: 01 HOME, SELF-CARE Condition: STABLE Referrals: JANIA PIERCE PA-C (PCP) Patient Instructions: Pneumonia, Adult Additional Instructions: Thank you for visiting [facility]. We appreciate you trusting us with your care. If any additional problems come up don't hesitate to return to visit us. Please follow up with your primary care provider so they can plan additional care if needed and know about the problem that you had. If symptoms worsen come back to the Emergency Department. Any concerning symptoms that start such as chest pain, shortness of air, weakness or numbness on one side of the body, running high fevers or any other concerning symptoms return to the ER. You have been prescribed an antibiotic today to help fight your infection. Please take all of the antibiotic as directed. If after 48 hours the infection is not improving, please return for more care. If the infection worsens, return to ER for additional care. Scripts Doxycycline Hyclate (DOXYCYCLINE HYCLATE) 100 Mg Capsule 1 CAP PO BID for 7 Days, #14 CAP Prov: MAGGIE LENNON APRN 12/26/18 Problem Qualifiers Primary Impression: Pneumonia Pneumonia type: due to unspecified organism Laterality: right Lung location: lower lobe of lung Qualified Codes: J18.9 - Pneumonia, unspecified organism MAGGIE LENNON APRN Dec 26, 2018 18:04 CARLOS CARLOS MD Dec 26, 2018 22:25
[2018-12-26] MEDS ORDERED: DOXY100C2 PO (18:35)
--- NOTE | 2018-12-26 18:36 | RAD ---
Study: CHEST PA LATERAL Indication: Cough and fever. Comparison: None available. Findings: On the lateral view, slight haziness projecting over the anterior aspect of the lower thoracic vertebral elements at the level of the retrocardiac clear space. No pleural effusion or pneumothorax. Unremarkable cardiomediastinal silhouette and fabricio. Impression: On the lateral view, faint haziness projecting over the anterior aspect of the lower thoracic vertebral bodies at the level of the retrocardiac clear space. This could represent superimposition of osseous/soft tissue structures however a developing infectious infiltrate could appear similar. No parapneumonic effusion. Electronically signed by: DARIUS GALVAN MD (12/26/2018 6:33 PM) [id number]
== END 2018-12-26 18:46 | disposition home or self-care (01) ==
LOC: ER 17:14
DX: J18.9 Pneumonia, unspecified organism (principal); Z88.6 Allergy status to analgesic agent
CPT/HCPCS: 71046; 99284

== ENCOUNTER 2019-01-24 19:45 | Emergency (ER) | payer MEDICARE, OTHER ==
[~2019-01-24] VITALS: Ht 162.6 cm; Wt 122.5 kg
[~2019-01-24 19:45] MED LIST changes: +DOXY100C2 PO
[2019-01-24 20:20] VITALS: BP 147/74
[2019-01-24] MEDS ORDERED: ORPHENADRINE CITRATE 60 MG/2 ML VIAL. IM ONE (21:15)
[2019-01-24] MEDS ORDERED: HYDROcodone/APAP 5/325MG 1 TAB TABLET PO ONE (21:15)
[2019-01-24] MEDS ORDERED: ORPH100T PO (22:03)
[2019-01-24] MEDS ORDERED: HYDR-3164 PO (22:03)
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
== END 2019-01-24 22:20 | disposition home or self-care (01) ==
LOC: ER 19:45
DX: S39.012A Strain of muscle, fascia and tendon of lower back, initial encounter (principal); M54.6 Pain in thoracic spine; Z98.51 Tubal ligation status; Z88.8 Allergy status to other drugs, medicaments and biological substances; V49.49XA Driver injured in collision with other motor vehicles in traffic accident, initial encounter; Y93.89 Activity, other specified; Y92.488 Other paved roadways as the place of occurrence of the external cause; Y99.8 Other external cause status
CPT/HCPCS: 72072; 72110; 96372; 99284; J2360